=== PATIENT | female | born 1995 | race Caucasian/White ===

== ENCOUNTER 2018-05-04 05:01 | Emergency (ER) | payer BC ==
[~2018-05-04] VITALS: Ht 162.6 cm; Wt 86.2 kg
[2018-05-04 05:20] LABS: URINE BILIRUBIN NEGATIVE (Negative); URINE BLOOD 2+ (Negative); URINE CLARITY CLEAR; URINE COLOR YELLOW; URINE GLUCOSE-RANDOM NEGATIVE (Negative); URINE KETONES NEGATIVE (Negative); URINE LEUKOCYTES-REFLEX NEGATIVE (Negative); URINE NITRITE-REFLEX NEGATIVE (Negative); URINE PROTEIN NEGATIVE (Negative); URINE SPECIFIC GRAVITY >= 1.030 (1.005-1.030); URINE UROBILINOGEN 0.2 E.U./dl (0.2-1.0)
[2018-05-04 05:33] LABS: ABSOLUTE EOSINOPHILS 0.1 thou/uL (0.0-0.7); ABSOLUTE LYMPHOCYTES 3.3 thou/uL (0.8-5.3); ABSOLUTE MONOCYTES 0.5 thou/uL (0.0-1.2); ABSOLUTE NEUTROPHILS 3.6 thou/uL (1.6-8.1); BASOPHILS 0.5 %; HEMOGLOBIN 12.7 gm/dL (12.0-15.0); LYMPHOCYTES 44.5 %; MCH 26.7 pg (26.0-34.0); MCHC 33.5 g/dL (28.0-37.0); MCV 79.8 fL (80.0-100.0); MONOCYTES 6.3 %; MPV 7.7 fl. (7.2-11.1); NUCLEATED RBCS 0 /100WBC; PLATELET COUNT* 252 thou/uL (150-400); POLYS 47.7 %; RBC 4.76 mil/uL (4.20-5.00); RDW-CV 14.9 % (10.5-14.5); WBC 7.5 thou/uL (4.0-11.0)
[2018-05-04 05:36] LABS: CALCIUM 8.5 mg/dL (8.5-10.1); CREATININE 0.8 mg/dL (0.6-1.3); POTASSIUM 3.5 mmol/L (3.5-5.1)
[2018-05-04 05:41] LABS: ALBUMIN 3.3 g/dL (3.4-5.0); TOTAL BILIRUBIN 0.5 mg/dL (<0.1-1.0); TOTAL PROTEIN 7.7 g/dL (6.4-8.2)
[2018-05-04 05:42] LABS: CASTS None Seen /LPF (None Seen); CRYSTALS None Seen /LPF (None Seen); MUCUS 4-6 Moderate strn/LPF (None Seen); SQUAMOUS 4-10 Moderate /LPF (0-3); URINE WBC-REFLEX None Seen /HPF (0-5)
[2018-05-04] MEDS ORDERED: CIPROFLOXACIN500 M1 PO (07:43)
[2018-05-04] MEDS ORDERED: FLOMAX0.4 MG PO (07:43)
[2018-05-04] MEDS ORDERED: PERCOCET 5-3251 EACH PO (07:43)
[2018-05-04 08:01] VITALS: BP 133/86
== END 2018-05-04 08:02 | disposition home or self-care (01) ==
LOC: M.ERS 05:01
PROVIDERS: Personal Emergency Response Attendant
DX: R10.31 Right lower quadrant pain (principal)